=== PATIENT | male | born 1935 | race African-American/Black ===

== ENCOUNTER 2024-02-02 10:48 | Emergency (ER) | payer OTHER, MEDICARE, SELFPAY ==
--- NOTE | ~2024-02-02 | XR_ITS ---
EXAMINATION: XR chest 2V DATE: 02/02/2024 11:26 INDICATION: Weakness. Lethargy. TECHNIQUE: Frontal and lateral views of the chest were obtained. COMPARISON: None. FINDINGS: There is marked elevation of left hemidiaphragm. There is mild atelectasis at lung bases. N o pleural effusion or pneumothorax. The heart size is normal. Median sternotomy wires and mediastinal surgical clips are seen, likely from prior coronary artery bypass grafting. IMPRESSION: 1. Marked elevation of left hemidiaphragm. 2. Mild atelectasis at the lung bases. Reviewed, dictated and finalized at location E.
[2024-02-02 10:49] VITALS: BP 128/59; PULSE 89; RESP 16; TEMP 36.6; O2SAT 95
--- NOTE | 2024-02-02 11:03 | ECG_ITS ---
SEE SCANNED COPY FOR CONFIRMED REPORT MTDD
[2024-02-02 12:29] LABS: Basophils Percent Auto 0.7 % (0.2-1.2); Eosinophils Absolute Auto 0.1 K/mm3 (0-0.3); Eosinophils Percent Auto 1.8 % (0-4.4); Hematocrit 36.7 % (42.0-52.0); Immature Granulocyte Absolute 0.04 K/mm3 (0.00-0.031); Immature Granulocyte Percent A 0.7 % (0-0.5); Lymphocytes Percent Auto 8.2 % (18.3-44.2); Mean Corpuscular HGB Conc 35.4 g/dl (32-36); Mean Corpuscular Volume 79.1 fl (80-100); Mean Platelet Volume 9.9 fl (7.4-10.4); Monocytes Absolute Auto 0.8 K/mm3 (0.1-0.6); Monocytes Percent Auto 12.7 % (2.6-8.5); Neutrophils Absolute Auto 4.7 K/mm3 (1.3-6.7); Neutrophils Percent Auto 75.9 % (45.5-73.1); Platelet Count Result 235 k/mm3 (150-375); Red Blood Count 4.64 M/mm3 (4.6-6.20); Red Cell Distribution Width 18.2 % (11.5-14.5); White Blood Count 6.1 K/mm3 (4.5-10.0)
[2024-02-02 12:33] VITALS: BP 129/58; PULSE 96; RESP 19; O2SAT 97
[2024-02-02 12:46] LABS: Appearance Urine Cloudy (Clear); Bacteria Urine 4+ /hpf; Bilirubin Urine Negative (Negative); Blood Urine 3+ (Negative); Color Urine Yellow (Yellow); Glucose Urine UA Negative (Negative); Ketones Urine Negative (Negative); Leukocyte Esterase Ur 3+ LEU/UL (Negative); Nitrate Urine Negative (Negative); Non Pathogenic Casts 0-2; Protein Urine 2+ mg/dL (Negative); Specific Grav Ur 1.015 (1.001-1.035); Squamous Epithelial Cell Urine None Seen /hpf (Few); WBC Urine >100 /hpf (0-3); pH Urine 8.5 (5.0-9.0)
[2024-02-02 12:49] LABS: Alanine Aminotransferase 34 U/L (6-50); Albumin Level 3.6 g/dL (3.5-5.1); Alkaline Phosphatase 90 U/L (38-126); Anion Gap 4 mmol/L (4-12); Aspartate Amino Transferase 34 U/L (17-59); Bilirubin,Total 0.7 mg/dL (0.2-1.3); Blood Urea Nitrogen 40 mg/dL (9-20); Calcium 9.2 mg/dL (8.4-10.2); Carbon Dioxide 25 mmol/L (22-30); Chloride 110 mmol/L (98-107); Estimated CRCL calculation 29 ml/min; Estimated Glomerular Filt Rate > 60; Glucose 100 mg/dL (65-110); Potassium 4.3 mmol/L (3.4-5.0); Sodium 139 mmol/L (137-145)
--- NOTE | 2024-02-02 13:04 | ED.GENADULT ---
HPI - General Adult General Chief complaint: Weakness Stated complaint: lethargic Time Seen by Provider: 02/02/24 12:31 History of Present Illness HPI narrative: Patient is a 88-year-old male who presents to the emergency department afternoon from [facility] due to to generalized weakness. Patient was admitted at [facility] after he sustained a stroke. Patient is still able to move all 4 extremities, however, left-sided is weaker than the right. [facility] yesterday, however, today he was noted to be more sleepy and tired and was brought to our facility for further evaluation. Daughter is currently present at bedside and does admit that he does look a little bit more tired, however, he is at his baseline mentation pulido. Patient is currently denying any complaints other than feeling generally weak and tired. No additional symptoms or concerns at this time. Related Data Home Medications Medication Instructions Recorded Confirmed acetaminophen 650 mg rectal 650 mg RECTAL Q4H PRN Mild Pain 02/01/24 02/01/24 suppository (Scale Score 1-4) acetaminophen 650 mg rectal 650 mg RECTAL Q4H PRN Pain/Fever 02/01/24 02/01/24 suppository acidophilus 100 million 1 cap PO DAILY 02/01/24 02/01/24 cell-pectin, citrus 10 mg capsule aspirin 81 mg tablet,delayed 81 mg PO DAILY 02/01/24 02/01/24 release aspirin 81 mg tablet,delayed 81 mg PO DAILY 02/01/24 02/01/24 release atorvastatin 40 mg tablet 40 mg PO DAILY 02/01/24 02/01/24 atorvastatin 40 mg tablet (Lipitor) 40 mg PO DAILY 02/01/24 02/01/24 bisacodyl 10 mg rectal suppository 10 mg RECTAL DAILY PRN Constipation 02/01/24 02/01/24 bisacodyl 10 mg rectal suppository 10 mg RECTAL DAILY PRN Constipation 02/01/24 02/01/24 cholecalciferol (vitamin D3) 25 25 mcg PO DAILY 02/01/24 02/01/24 mcg (1,000 unit) tablet (Vitamin D3) cholecalciferol (vitamin D3) 25 25 mcg PO DAILY 02/01/24 02/01/24 mcg (1,000 unit) tablet (Vitamin D3) diclofenac sodium 1 % topical gel 2 g topical QID 02/01/24 02/01/24 diclofenac sodium 1 % topical gel 2 g topical QID arthritis 02/01/24 02/01/24 docusate sodium 100 mg capsule 100 mg PO BID 02/01/24 02/01/24 docusate sodium 100 mg capsule 100 mg PO DAILY 02/01/24 02/01/24 finasteride 5 mg tablet 5 mg PO DAILY 02/01/24 02/01/24 finasteride 5 mg tablet 5 mg PO DAILY 02/01/24 02/01/24 folic acid 400 mcg tablet 0.4 mg PO DAILY 02/01/24 02/01/24 folic acid 400 mcg tablet 0.4 mg PO DAILY 02/01/24 02/01/24 megestrol 400 mg/10 mL (40 mg/mL) 400 mg PO DAILY 02/01/24 02/01/24 oral suspension megestrol 400 mg/10 mL (40 mg/mL) 400 mg PO DAILY 02/01/24 02/01/24 oral suspension metoprolol succinate 25 mg 12.5 mg PO DAILY 02/01/24 02/01/24 tablet,extended release 24 hr metoprolol succinate 25 mg 12.5 mg PO DAILY 02/01/24 02/01/24 tablet,extended release 24 hr mupirocin 2 % topical ointment 1 applic topical TID 02/01/24 02/01/24 mupirocin 2 % topical ointment 1 applic topical TID 02/01/24 02/01/24 omeprazole 20 mg capsule,delayed 20 mg PO DAILY 02/01/24 02/01/24 release omeprazole 20 mg capsule,delayed 20 mg PO DAILY 02/01/24 02/01/24 release pemigatinib 13.5 mg tablet 13.5 mg PO DAILY 02/01/24 02/01/24 pemigatinib 13.5 mg tablet 13.5 mg PO DAILY 02/01/24 02/01/24 (Pemazyre) polyethylene glycol 3350 17 gram 17 g PO DAILY Constipation 02/01/24 02/01/24 oral powder packet polyethylene glycol 3350 17 gram 17 g PO DAILY 02/01/24 02/01/24 oral powder packet (Miralax) ticagrelor 90 mg tablet 90 mg PO Q12H 02/01/24 02/01/24 ticagrelor 90 mg tablet 90 mg PO Q12H 02/01/24 02/01/24 Allergies Allergy/AdvReac Type Severity Reaction Status Date / Time cetirizine [From [facility]] AdvReac Dizziness Verified 02/02/24 11:06 loratadine AdvReac Dizziness Verified 02/02/24 11:06 Review of Systems Review of Systems: All systems are reviewed and are negative unless stated otherwise in the HPI. [facility] Family
[2024-02-02 13:16] LABS: Add Urine Microscopic? YES
[2024-02-02] MEDS: SODIUM CHLORIDE 0.9% IV 1,000 ML 500 ML IV CONT (13:25)
[2024-02-02 13:30] LABS: Influenza A QL RT-PCR Negative (Negative); Influenza B QL RT-PCR Negative (Negative); RSV RNA, RT-PCR Negative (Negative); SARS-CoV-2 RNA PCR Negative (Negative)
[2024-02-02 13:33] VITALS: BP 110/65; PULSE 88; RESP 16; O2SAT 100
[2024-02-02 14:01] VITALS: BP 114/41; PULSE 85; RESP 20; O2SAT 100
[2024-02-02 15:00] VITALS: BP 120/65; PULSE 80; PULSE 85; RESP 14; RESP 16; O2SAT 97
[2024-02-02 15:01] VITALS: BP 137/89; PULSE 79; RESP 12; O2SAT 100
== END 2024-02-02 16:20 ==
PROVIDERS: Emergency Provider Emergency Medicine; PCP Hospitalist
DX: N39.0 Urinary tract infection, site not specified (principal); R53.1 Weakness; Z20.822 Contact with and (suspected) exposure to COVID-19; I69.354 Hemiplegia and hemiparesis following cerebral infarction affecting left non-dominant side; Z87.891 Personal history of nicotine dependence; Z79.82 Long term (current) use of aspirin; Z79.899 Other long term (current) drug therapy; I45.10 Unspecified right bundle-branch block
CPT/HCPCS: 36415; 71046; 80053; 81001; 85025; 87077; 87086; 87088; 87186; 87637; 93005; 96361; 96365; 99284; J0696; J7030

== ENCOUNTER 2024-03-08 17:46 | Inpatient (IN) | payer MEDICARE, OTHER, SELFPAY ==
[2024-03-08] VITALS (18 sets, daily range): BP systolic 96–140; BP diastolic 42–103; PULSE 106–123; RESP 14–38; TEMP 36.4; O2SAT 92–100
--- NOTE | ~2024-03-08 | XR_ITS ---
Portable chest x-ray Comparison: 02/02/2024 Clinical History: Hypoxia Findings: There is elevation of left hemidiaphragm. Probable minimal right pleural effusion and righ t basilar atelectasis. Cardiomediastinal silhouette is stable. Bones and soft tissues are unremarkab le. Impression: Minimal right pleural effusion and/or right basilar atelectasis. Elevated left hemidiaphragm. Reviewed, dictated and finalized at location . Impression: Minimal right pleural effusion and/or right basilar atelectasis. Elevated left hemidiaphragm.
--- NOTE | ~2024-03-08 | CT_ITS ---
EXAMINATION: CT soft tissue neck chest wo DATE: 03/08/2024 21:13 INDICATION: foreign body sensation, sore throat TECHNIQUE: Computed tomography (CT) of the chest was performed with 100 mL Omnipaque-350 intravenous contrast. Automated exposure control and iterative reconstruction technique were employed. The dose-l ength product was 514.13 mGy-cm. COMPARISON: None. FINDINGS: SOFT TISSUE NECK: The thyroid gland is unremarkable. The submandibular and parotid glands are symmetric. There is n o cervical lymphadenopathy. There are no masses identified. The superior mediastinum is unremarka ble. Aerated secretions in the valleculae and subglottic airway. The airway is otherwise unremarkab le. Parapharyngeal and pre-glottic fat planes are preserved. The orbits are unremarkable. Mastoi d air cells are well aerated. There is cervical spondylosis with multilevel central canal or neural foraminal narrowing. CHEST: Motion artifact in the upper abdomen. Thoracic aorta: No significant dilation or calcification. Heavy atherosclerotic calcification. Lung parenchyma and airways: Left hemidiaphragm elevation. 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 Calcified right lower lobe granuloma. Lungs and airways are otherwise clear. Thoracic inlet, axillae and chest wall: No thyroid or soft tissue mass. Changes of prior CABG. No axi llary lymphadenopathy. Mediastinum: No mass or lymphadenopathy. Heart and pericardium: Normal heart size. No pericardial effusion. Coronary artery calcifications: Heavy. Pleura: No effusion or mass. Upper abdomen: No significant finding. Thoracic bones: No acute osseous finding in the chest. IMPRESSION: Aerated secretions in the valleculae and supraglottic airway. No radiopaque foreign body detected in the airways. If symptoms persist consider referral for endoscopy and/or swallowing study with esophag ogram. No acute thoracic process detected. Reviewed, dictated and finalized at location K. IMPRESSION: Aerated secretions in the valleculae and supraglottic airway. No radiopaque for eign body detected in the airways. If symptoms persist consider referral for en doscopy and/or swallowing study with esophagogram. No acute thoracic process detected.
--- NOTE | 2024-03-08 19:08 | ED_ITS ---
HPI - General Adult General Chief complaint: Unspecified Stated complaint: difficulty swallowing Time Seen by Provider: 03/08/24 18:53 History of Present Illness HPI narrative: Patient is an 89-year-old male with history of terminal liver cancer, currently seeking hospice care, recent CVA here with difficulty swallowing and decreased p.o. intake x1 day. Daughter at bedside helps with history. She states that 5 days ago he had dental walled performed at the [facility] for new dentures. The following day he started complaining of an itchy throat. Symptoms have progressed since then and today He was complaining of a foreign body sensation and pain with swallowing. Daughter notes that he has been able to tolerate his secretions but he did attempt to have both a yogurt and insure today and she did note that he seemed to cough some of this up. He has had next to no p.o. intake throughout the day today due to this pain and difficulty with swallowing. They are well connected with multiple programs including occupational therapy, physical therapy, speech therapy. He was evaluated by speech therapy last week however he did not have any difficulty with swallowing during their visit and they have plans to follow up with him again after his dentures arrive in a couple of weeks. Daughter at bedside denies any difficulty with swallowing after his recent CVA. No fever or chills. Patient currently complaining of a sore throat and dry mouth. Related Data Home Medications Medication Instructions Recorded Confirmed acidophilus 100 million 1 cap PO DAILY 02/01/24 03/09/24 cell-pectin, citrus 10 mg capsule aspirin 81 mg tablet,delayed 81 mg PO DAILY 02/01/24 03/09/24 release atorvastatin 40 mg tablet (Lipitor) 40 mg PO DAILY 02/01/24 03/09/24 bisacodyl 10 mg rectal suppository 10 mg RECTAL DAILY PRN Constipation 02/01/24 03/09/24 cholecalciferol (vitamin D3) 25 25 mcg PO DAILY 02/01/24 03/09/24 mcg (1,000 unit) tablet (Vitamin D3) diclofenac sodium 1 % topical gel 2 g topical QID 02/01/24 03/09/24 docusate sodium 100 mg capsule 100 mg PO BID 02/01/24 03/09/24 finasteride 5 mg tablet 5 mg PO DAILY 02/01/24 03/09/24 folic acid 400 mcg tablet 0.4 mg PO DAILY 02/01/24 03/09/24 megestrol 400 mg/10 mL (40 mg/mL) 400 mg PO DAILY 02/01/24 03/09/24 oral suspension metoprolol succinate 25 mg 12.5 mg PO DAILY 02/01/24 03/09/24 tablet,extended release 24 hr omeprazole 20 mg capsule,delayed 20 mg PO DAILY 02/01/24 03/09/24 release polyethylene glycol 3350 17 gram 17 g PO DAILY 02/01/24 03/09/24 oral powder packet (Miralax) ticagrelor 90 mg tablet 90 mg PO Q12H 02/01/24 03/09/24 Allergies Allergy/AdvReac Type Severity Reaction Status Date / Time cetirizine [From [facility]] AdvReac Dizziness Verified 02/02/24 11:06 loratadine AdvReac Dizziness Verified 02/02/24 11:06 Review of Systems Review of Systems: All systems reviewed & are unremarkable except as noted in HPI and below PMFSH Family History Family History Sibling Diabetes mellitus Prostate carcinoma Daughter Cancer Social History Social History Smoking packs per day: 1 Smoking cigarettes per day: 20.0 Years smoked: 4 Smoking pack-years: 4.00 Smoking status: Former smoker Tobacco type: cigarettes Second hand tobacco smoke exposure: Yes Alcohol intake: never Substance use: never Substance use type: does not use Do You Feel Safe in your Home?: Yes Lack of Transportation: No Lack of Food: Never True Current Housing: I Have Housing Concerned About Future Housing: No Difficulty Paying Gas/Electric Bills: No Difficulty Paying for Meds: No Currently Unemployed: No Education: Don't Know Difficulty w/ Childcare or Family Care: No Spiritual care concerns: Yes ([place]) Exam Narrative: GENERAL: Cachectic HEAD: Normocephalic, atraumatic. EYES: PERRLA and EOMI. ENT: Nares clear. Mucous membranes extremely dry. he does have some dried blood in his oropharynx and what appears to be a scab in the left nares NECK: Supple. CHEST: Clear to auscultation. No respiratory distress. HEART: Tachycardic. Normal peripheral pulses. ABDOMEN: Soft, nontender, nondistended. EXTREMITIES: Normal range of motion. No edema. SKIN: Warm, dry, no rash. NEURO: No focal deficits. Alert and oriented x3. Course Course Emergency Course: Chart review performed. Patient here with sore throat and difficulty swallowing and taking medications this morning. Triage vitals show tachycardia, afebrile, normal O2 saturation. Last visit in our system was for an acute RMCA ischemic stroke about a month ago, discharged a couple of weeks ago. Patient seen evaluated, cachectic appearing, does have terminal liver cancer and family recently with true any care and note that their goals of care moving forward are to be focused on comfort. He has had a progressive worsening sore throat since mid last week and today is having difficulty with any p.o. intake. Mucous membranes extremely dry on exam. He does appear to have a resolved epistaxis on the left side, no active bleeding appreciated, daughter at bedside notes that this is a recurrent issue due to nose picking. Suspect patient likely has a component of dehydration, will do COVID, influenza, RSV swab as well as a strep swab. IV fluids ordered. Patient and daughter agreeable to workup and plan. Multiple attempts for patient to try and swallow both water and GI cocktail, he has difficulty initiating any swallowing. Will to CT soft tissue neck as well as chest to evaluate for possible abnormality. Anticipate he will require admission for swallow study and possible endoscopy. Lab work reviewed. CBC shows some hemoconcentration, TREV present as well as mild hyperkalemia. COVID, influenza, RSV, strep swabs negative. CT shows aerated secretions in the valleculae and supraglottic airway, no radiopaque foreign body detected in the airways. She patient continues to be unable to swallow here in the department. Will admit for swallow study and possible endoscopy if needed. Lengthy discussion regarding goals of care with patient and daughter at bedside. Patient states that he would like to be full code despite likely poor outcome and discussions with hospice outpatient. Spoke with hospitalist, Dr. Oneil who accepts patient for admission. Vital Signs Vital signs: Vital Signs Temperature 97.5 F L 03/08/24 18:03 Pulse Rate 110 H 03/08/24 18:03 Respiratory Rate 18 03/08/24 18:03 Blood Pressure 127/44 L 03/08/24 18:03 Pulse Oximetry 100 03/08/24 18:03 Oxygen Delivery Room Air 03/08/24 18:03 Temperature 97.0 F L 03/09/24 03:06 Pulse Rate 112 H 03/09/24 03:06 Respiratory Rate 22 H 03/09/24 02:59 Blood Pressure 123/92 H 03/09/24 03:06 Pulse Oximetry 100 03/09/24 03:06 Oxygen Delivery Nasal Cannula 03/09/24 02:34 Oxygen Flow Rate 2 03/09/24 02:34 Medical Decision Making Vital Signs Vital Signs: Vital Signs Temperature 97.5 F L 03/08/24 18:03 Pulse Rate 110 H 03/08/24 18:03 Respiratory Rate 18 03/08/24 18:03 Blood Pressure 127/44 L 03/08/24 18:03 Pulse Oximetry [facility] 03/08/24 18:03 Oxygen Delivery Room Air 03/08/24 18:03 Temperature 97.0 F L 03/09/24 03:06 Pulse Rate 112 H 03/09/24 03:06 Respiratory Rate 22 H 03/09/24 02:59 Blood Pressure 123/92 H 03/09/24 03:06 Pulse Oximetry [facility] 03/09/24 03:06 Oxygen Delivery Nasal Cannula 03/09/24 02:34 Oxygen Flow Rate 2 03/09/24 02:34 Lab Data 03/08/24 19:32 03/08/24 23:23 Labs: Lab Results 03/08/24 03/08/24 03/08/24 Range/Units 19:32 21:17 23:23 WBC 8.1 (4.5-10.0) K/mm3 RBC 4.55 L (4.6-6.20) M/mm3 Hgb 13.2 L (14.0-18.0) g/dL Hct 37.8 L (42.0-52.0) % MCV 83.1 (80-100) fl MCH 29.0 (26-34) pg MCHC 34.9 (32-36) g/dl RDW 16.6 H (11.5-14.5) % Plt Count 197 (150-375) k/mm3 MPV 10.1 (7.4-10.4) fl Immature Gran % (Auto) 0.2 (0-0.5) % Neut % (Auto) 87.4 H (45.5-73.1) % Lymph % (Auto) 3.9 L (18.3-44.2) % Granite % (Auto) 7.0 (2.6-8.5) % Eos % (Auto) 1.0 (0-4.4) % Baso % (Auto) 0.5 (0.2-1.2) % Lymph # (Auto) 0.31 L (0.9-3.2) K/mm3 Granite # (Auto) 0.6 (0.1-0.6) K/mm3 Eos # (Auto) 0.1 (0-0.3) K/mm3 Baso # (Auto) 0.0 (0.0-0.1) K/mm3 Abs Immat Gran (auto) 0.02 (0.00-0.031) K/mm3 Absolute Neuts (auto) 7.0 H (1.3-6.7) K/mm3 Absolute Nucleated RBC 0.000 (0.0-0.012) K/mm3 Nucleated RBC % 0.0 (0.0-0.2) % Sodium 145 144 (137-145) mmol/L Potassium 5.3 H 5.1 H (3.4-5.0) mmol/L Chloride 112 H 113 H (98-107) mmol/L Carbon Dioxide 21 L 23 (22-30) mmol/L Anion Gap 12 8 (4-12) mmol/L BUN 41 H 38 H (9-20) mg/dL Creatinine 1.90 H 1.70 H (0.7-1.3) mg/dL Estim Creat Clear Calc 20 22 ml/min Estimated GFR 41 L 46 L (59 - ) Glucose 122 H 104 (65-110) mg/dL Calcium 9.9 9.3 (8.4-10.2) mg/dL Magnesium 2.1 (1.6-2.3) mg/dL Total Bilirubin 1.3 (0.2-1.3) mg/dL AST 32 (17-59) U/L ALT 27 (6-50) U/L Alkaline Phosphatase 118 (38-126) U/L C-Reactive Protein 3.5 H (<1.0) mg/dL Total Protein 8.0 (6.3-8.2) g/dL Albumin 4.4 (3.5-5.1) g/dL Urine Color Yellow (Yellow) Urine Appearance Clear (Clear) Urine pH 5.5 (5.0-9.0) Ur Specific [place] 1.022 (1.001-1.035) Urine Protein Trace (Negative) mg/dL Urine Glucose (UA) Negative (Negative) mg/dL Urine Ketones Trace H (Negative) mg/dL Ur Blood (Man) Negative (Negative) Urine Nitrate Negative (Negative) Urine Bilirubin Negative (Negative) Urine Urobilinogen 0.2 (<2.0) mg/dL Add Ur Microanalysis Reviewed Leukocyte Esterase Rfl Negative (Negative) INDIGO/UL Urine RBC 3-5 H (0-2) /hpf Urine WBC 0-5 (0-3) /hpf Ur Squamous Epith Cells None seen (Few) /hpf Urine Bacteria None seen /hpf Urine Casts 3-5 Influenza A (RT-PCR) Negative (Negative) Influenza B (RT-PCR) Negative (Negative) RSV (RT-PCR) Negative (Negative) SARS-CoV-2 RNA (RT-PCR) Negative (Negative) Group A Strep (PCR) Not detected (Negative) Discharge Plan Discharge Clinical Impression: Dysphagia, TREV (acute kidney injury) Patient Disposition: Still a Patient Condition: Stable
[2024-03-08 19:40] LABS: Basophils Percent Auto 0.5 % (0.2-1.2); Eosinophils Absolute Auto 0.1 K/mm3 (0-0.3); Hematocrit 37.8 % (42.0-52.0); Hemoglobin 13.2 g/dL (14.0-18.0); Immature Granulocyte Absolute 0.02 K/mm3 (0.00-0.031); Immature Granulocyte Percent A 0.2 % (0-0.5); Lymphocytes Absolute Auto 0.31 K/mm3 (0.9-3.2); Lymphocytes Percent Auto 3.9 % (18.3-44.2); Mean Corpuscular HGB Conc 34.9 g/dl (32-36); Mean Corpuscular Volume 83.1 fl (80-100); Mean Platelet Volume 10.1 fl (7.4-10.4); Monocytes Absolute Auto 0.6 K/mm3 (0.1-0.6); Neutrophils Percent Auto 87.4 % (45.5-73.1); Platelet Count Result 197 k/mm3 (150-375); Red Blood Count 4.55 M/mm3 (4.6-6.20); Red Cell Distribution Width 16.6 % (11.5-14.5); White Blood Count 8.1 K/mm3 (4.5-10.0)
[2024-03-08] MEDS: LACTATED RINGERS 1,000 ML 999 ML IV CONT ×2 (19:42→23:14)
[2024-03-08] MEDS: ONDANSETRON INJ 4 MG/2 ML VIAL IV PUSH (19:43)
[2024-03-08] MEDS: BELLADONNA ALK/PHENOB ELIX 10 ML, MAG HYDROX/ALUMINUM HYD/SIMETH 30 ML, LIDOCAINE HCL 2... PO (19:43)
[2024-03-08] MEDS: MORPHINE SULFATE (*CRX) 4 MG/ML INJ 2 MG IV PUSH (19:47)
[2024-03-08 19:53] LABS: Alanine Aminotransferase 27 U/L (6-50); Albumin Level 4.4 g/dL (3.5-5.1); Alkaline Phosphatase 118 U/L (38-126); Anion Gap 12 mmol/L (4-12); Aspartate Amino Transferase 32 U/L (17-59); Bilirubin,Total 1.3 mg/dL (0.2-1.3); Blood Urea Nitrogen 41 mg/dL (9-20); CRP 3.5 mg/dL (<1.0); Calcium 9.9 mg/dL (8.4-10.2); Carbon Dioxide 21 mmol/L (22-30); Chloride 112 mmol/L (98-107); Estimated CRCL calculation 20 ml/min; Estimated Glomerular Filt Rate 41; Glucose 122 mg/dL (65-110); Magnesium 2.1 mg/dL (1.6-2.3); Potassium 5.3 mmol/L (3.4-5.0); Sodium 145 mmol/L (137-145)
[2024-03-08 20:15] LABS: Strep Group A RT-PCR NOT DETECTED (Negative)
[2024-03-08 20:26] LABS: Influenza A QL RT-PCR Negative (Negative); Influenza B QL RT-PCR Negative (Negative); RSV RNA, RT-PCR Negative (Negative); SARS-CoV-2 RNA PCR Negative (Negative)
--- NOTE | 2024-03-08 20:58 | PC.NURSE ---
attempted to give patient GI cocktail drink to help with throat and abd pain. patient was unable to close lips around straw due to lack of secretions. moistened mouth with 3 separate mouth swabs and patient was barely participating in moistening mouth due to weakness. provider requests to continue attempt giving PO medication drink. family requests to put a little amount of liquid medication in patients mouth for them, however after trying this with 2ml the patient would not swallow the medication. did not try anymore attempts after this because patient was not visibly swallowing secretions, medication, or water from mouth swabs. provider notified and okayed this.
[2024-03-08 21:38] LABS: Appearance Urine Clear (Clear); Bacteria Urine None Seen /hpf; Bilirubin Urine Negative (Negative); Blood Urine Negative (Negative); Color Urine Yellow (Yellow); Glucose Urine UA Negative (Negative); Ketones Urine Trace mg/dL (Negative); Leukocyte Esterase Ur Negative LEU/UL (Negative); Need Manual Microscopic Reviewed; Nitrate Urine Negative (Negative); Protein Urine Trace mg/dL (Negative); Specific Grav Ur 1.022 (1.001-1.035); Squamous Epithelial Cell Urine None Seen /hpf (Few); Urobilinogen Urine 0.2 mg/dL (<2.0); WBC Urine 0-5 /hpf (0-3); pH Urine 5.5 (5.0-9.0)
[2024-03-08 21:44] LABS: Add Urine Microscopic? YES
--- NOTE | 2024-03-08 23:22 | PC.NURSE ---
care and report given to IFEANYI Mcguire. all questions answered.
[2024-03-08 23:41] LABS: Anion Gap 8 mmol/L (4-12); Blood Urea Nitrogen 38 mg/dL (9-20); Calcium 9.3 mg/dL (8.4-10.2); Carbon Dioxide 23 mmol/L (22-30); Chloride 113 mmol/L (98-107); Estimated CRCL calculation 22 ml/min; Estimated Glomerular Filt Rate 46; Glucose 104 mg/dL (65-110); Potassium 5.1 mmol/L (3.4-5.0); Sodium 144 mmol/L (137-145)
[2024-03-09] VITALS (10 sets, daily range): BP systolic 121–137; BP diastolic 42–92; PULSE 63–112; RESP 14–22; TEMP 35.8–37.3; O2SAT 90–100; BMI 18.1
--- NOTE | 2024-03-09 02:42 | PC.NURSE ---
Pt's daughter, and POA, and granddaughter provided information regarding pt's admission. Pt was unable or unwilling to respond to any questions including orientation questions. I attempted to clarify pt's code status and alleged desire for hospice/comfort care (based on ER physician report). The daughter/POA adamantly stated repeatedly that they do NOT want hospice/comfort care. They want full code, all treatments, therapies, meds, etc. She informed me that pt's oncologist at the [facility] recommended that pt should be hospice as he is terminal, end stage, and in order to be made comfortable will need hospice services. The daughter/POA again affirmed that they do not want hospice.
--- NOTE | 2024-03-09 04:44 | ED.GENADULT ---
HPI - General Adult General Chief complaint: Unspecified Stated complaint: difficulty swallowing Time Seen by Provider: 03/08/24 18:53 Related Data Home Medications Medication Instructions Recorded Confirmed acidophilus 100 million 1 cap PO DAILY 02/01/24 03/09/24 cell-pectin, citrus 10 mg capsule aspirin 81 mg tablet,delayed 81 mg PO DAILY 02/01/24 03/09/24 release atorvastatin 40 mg tablet (Lipitor) 40 mg PO DAILY 02/01/24 03/09/24 bisacodyl 10 mg rectal suppository 10 mg RECTAL DAILY PRN Constipation 02/01/24 03/09/24 cholecalciferol (vitamin D3) 25 25 mcg PO DAILY 02/01/24 03/09/24 mcg (1,000 unit) tablet (Vitamin D3) diclofenac sodium 1 % topical gel 2 g topical QID 02/01/24 03/09/24 docusate sodium 100 mg capsule 100 mg PO BID 02/01/24 03/09/24 finasteride 5 mg tablet 5 mg PO DAILY 02/01/24 03/09/24 folic acid 400 mcg tablet 0.4 mg PO DAILY 02/01/24 03/09/24 megestrol 400 mg/10 mL (40 mg/mL) 400 mg PO DAILY 02/01/24 03/09/24 oral suspension metoprolol succinate 25 mg 12.5 mg PO DAILY 02/01/24 03/09/24 tablet,extended release 24 hr omeprazole 20 mg capsule,delayed 20 mg PO DAILY 02/01/24 03/09/24 release polyethylene glycol 3350 17 gram 17 g PO DAILY 02/01/24 03/09/24 oral powder packet (Miralax) ticagrelor 90 mg tablet 90 mg PO Q12H 02/01/24 03/09/24 Allergies Allergy/AdvReac Type Severity Reaction Status Date / Time cetirizine [From [facility]] AdvReac Dizziness Verified 02/02/24 11:06 loratadine AdvReac Dizziness Verified 02/02/24 11:06 [facility] Family History Family History Sibling Diabetes mellitus Prostate carcinoma Daughter Cancer Social History Social History Smoking packs per day: 1 Smoking cigarettes per day: 20.0 Years smoked: 4 Smoking pack-years: 4.00 Smoking status: Former smoker Tobacco type: cigarettes Second hand tobacco smoke exposure: Yes Alcohol intake: never Substance use: never Substance use type: does not use Do You Feel Safe in your Home?: Yes Lack of Transportation: No Lack of Food: Never True Current Housing: I Have Housing Concerned About Future Housing: No Difficulty Paying Gas/Electric Bills: No Difficulty Paying for Meds: No Currently Unemployed: No Education: Don't Know Difficulty w/ Childcare or Family Care: No Spiritual care concerns: Yes (Congregational) Course Vital Signs Vital signs: Vital Signs Temperature 97.5 F L 03/08/24 18:03 Pulse Rate 110 H 03/08/24 18:03 Respiratory Rate 18 03/08/24 18:03 Blood Pressure 127/44 L 03/08/24 18:03 Pulse Oximetry 100 03/08/24 18:03 Oxygen Delivery Room Air 03/08/24 18:03 Temperature 97.0 F L 03/09/24 03:06 Pulse Rate 112 H 03/09/24 03:06 Respiratory Rate 22 H 03/09/24 02:59 Blood Pressure 123/92 H 03/09/24 03:06 Pulse Oximetry 100 03/09/24 03:06 Oxygen Delivery Nasal Cannula 03/09/24 02:34 Oxygen Flow Rate 2 03/09/24 02:34 Medical Decision Making Vital Signs Vital Signs: Vital Signs Temperature 97.5 F L 03/08/24 18:03 Pulse Rate 110 H 03/08/24 18:03 Respiratory Rate 18 03/08/24 18:03 Blood Pressure 127/44 L 03/08/24 18:03 Pulse Oximetry 100 03/08/24 18:03 Oxygen Delivery Room Air 03/08/24 18:03 Temperature 97.0 F L 03/09/24 03:06 Pulse Rate 112 H 03/09/24 03:06 Respiratory Rate 22 H 03/09/24 02:59 Blood Pressure 123/92 H 03/09/24 03:06 Pulse Oximetry 100 03/09/24 03:06 Oxygen Delivery Nasal Cannula 03/09/24 02:34 Oxygen Flow Rate 2 03/09/24 02:34 Lab Data 03/08/24 19:32 03/08/24 23:23 Labs: Lab Results 03/08/24 03/08/24 03/08/24 Range/Units 19:32 21:17 23:23 WBC 8.1 (4.5-10.0) K/mm3 RBC 4.55 L (4.6-6.20) M/mm3 Hgb 13.2 L (14.0-18.0) g/dL Hct 37.8 L (42.0-52.0) % MCV 83.1 (80-100) fl MCH 29.0 (26-34) pg MCHC 34.9 (32-36) g/dl RDW 16.6 H (11.5-14.5) % Plt Count 197 (150-375) k/mm3 MPV 10.1 (7.4-10.4) fl Immature Gran % (Auto) 0.2 (0-0.5) % Neut % (Auto) 87.4 H (45.5-73.1) % Lymph % (Auto) 3.9 L (18.3-44.2) % [place] % (Auto) 7.0 (2.6-8.5) % Eos % (Auto) 1.0 (0-4.4) % Baso % (Auto) 0.5 (0.2-1.2) % Lymph # (Auto) 0.31 L (0.9-3.2) K/mm3 [place] # (Auto) 0.6 (0.1-0.6) K/mm3 Eos # (Auto) 0.1 (0-0.3) K/mm3 Baso # (Auto) 0.0 (0.0-0.1) K/mm3 Abs Immat Gran (auto) 0.02 (0.00-0.031) K/mm3 Absolute Neuts (auto) 7.0 H (1.3-6.7) K/mm3 Absolute Nucleated RBC 0.000 (0.0-0.012) K/mm3 Nucleated RBC % 0.0 (0.0-0.2) % Sodium 145 144 (137-145) mmol/L Potassium 5.3 H 5.1 H (3.4-5.0) mmol/L Chloride 112 H 113 H (98-107) mmol/L Carbon Dioxide 21 L 23 (22-30) mmol/L Anion Gap 12 8 (4-12) mmol/L BUN 41 H 38 H (9-20) mg/dL Creatinine 1.90 H 1.70 H (0.7-1.3) mg/dL Estim Creat Clear Calc 20 22 ml/min Estimated GFR 41 L 46 L (59 - ) Glucose 122 H 104 (65-110) mg/dL Calcium 9.9 9.3 (8.4-10.2) mg/dL Magnesium 2.1 (1.6-2.3) mg/dL Total Bilirubin 1.3 (0.2-1.3) mg/dL AST 32 (17-59) U/L ALT 27 (6-50) U/L Alkaline Phosphatase 118 (38-126) U/L C-Reactive Protein 3.5 H (<1.0) mg/dL Total Protein 8.0 (6.3-8.2) g/dL Albumin 4.4 (3.5-5.1) g/dL Urine Color Yellow (Yellow) Urine Appearance Clear (Clear) Urine pH 5.5 (5.0-9.0) Ur Specific [place] 1.022 (1.001-1.035) Urine Protein Trace (Negative) mg/dL Urine Glucose (UA) Negative (Negative) mg/dL Urine Ketones Trace H (Negative) mg/dL Ur Blood (Man) Negative (Negative) Urine Nitrate Negative (Negative) Urine Bilirubin Negative (Negative) Urine Urobilinogen 0.2 (<2.0) mg/dL Add Ur Microanalysis Reviewed Leukocyte Esterase Rfl Negative (Negative) INDIGO/UL Urine RBC 3-5 H (0-2) /hpf Urine WBC 0-5 (0-3) /hpf Ur Squamous Epith Cells None seen (Few) /hpf Urine Bacteria None seen /hpf Urine Casts 3-5 Influenza A (RT-PCR) Negative (Negative) Influenza B (RT-PCR) Negative (Negative) RSV (RT-PCR) Negative (Negative) SARS-CoV-2 RNA (RT-PCR) Negative (Negative) Group A Strep (PCR) Not detected (Negative) Discharge Plan Discharge Clinical Impression: TREV (acute kidney injury) Dysphagia Qualifiers: Dysphagia type: unspecified Qualified Code(s): R13.10 - Dysphagia, unspecified Patient Disposition: Still a Patient Condition: Stable
[2024-03-09] MEDS: HEPARIN SODIUM 5,000 UNITS/ML VIAL 5000 UNITS SUB-Q ×3 (05:10→21:06)
[2024-03-09] MEDS: DEXTROSE 5%/0.9% SOD CHL 1,000 ML 100 ML IV CONT ×2 (05:14→16:04)
[2024-03-09] MEDS: AMPICILLIN SULB 3 GM/NS 100 ML 3 GM/100 ML VIAL IVPB ×2 (05:17→16:12)
--- NOTE | 2024-03-09 05:35 | P.HP_ITS ---
H&P: HPI History of Present Illness Date/Time: 03/09/24 05:35 Chief Complaint: difficulty swallowing Narrative: a pleasant 89-year-old male who unfortunately has history of terminal liver cancer, CAD status post CABG, BPH, GERD, hyperlipidemia, hypertension, recent CVA with left-sided weakness. recently discharged from [facility] on 02/18/2024. He has had difficulty swallowing and decreased p.o. intake for 1 day. Patient is a poor historian in daughter helps to provide history. Approximately 5 days prior to admission he complained of itchy throat. noted he cannot tolerate his secretions either. initial evaluation demonstrates 88% on room air and 92% on 1 L. a neck/chest CT demonstrates aerated secretions in the vallecula and supraglottic airway with no radiopaque foreign body. Review of Systems Review of Systems: All systems reviewed & are unremarkable except as noted in HPI and below ( Subjective) [facility] Family History Family History Sibling Diabetes mellitus Prostate carcinoma Daughter Cancer Social History Social History Smoking packs per day: 1 Smoking cigarettes per day: 20.0 Years smoked: 4 Smoking pack-years: 4.00 Smoking status: Former smoker Tobacco type: cigarettes Second hand tobacco smoke exposure: Yes Alcohol intake: never Substance use: never Substance use type: does not use Do You Feel Safe in your Home?: Yes Lack of Transportation: No Lack of Food: Never True Current Housing: I Have Housing Concerned About Future Housing: No Difficulty Paying Gas/Electric Bills: No Difficulty Paying for Meds: No Currently Unemployed: No Education: Don't Know Difficulty w/ Childcare or Family Care: No Spiritual care concerns: Yes (Spiritism) Meds Home Medications and Allergies Home Medications Medication Instructions Recorded Confirmed Type acidophilus 100 million 1 cap PO DAILY 02/01/24 03/09/24 History cell-pectin, citrus 10 mg capsule aspirin 81 mg tablet,delayed 81 mg PO DAILY 02/01/24 03/09/24 History release atorvastatin 40 mg tablet (Lipitor) 40 mg PO DAILY 02/01/24 03/09/24 History bisacodyl 10 mg rectal suppository 10 mg RECTAL DAILY PRN Constipation 02/01/24 03/09/24 History cholecalciferol (vitamin D3) 25 25 mcg PO DAILY 02/01/24 03/09/24 History mcg (1,000 unit) tablet (Vitamin D3) diclofenac sodium 1 % topical gel 2 g topical QID 02/01/24 03/09/24 History docusate sodium 100 mg capsule 100 mg PO BID 02/01/24 03/09/24 History finasteride 5 mg tablet 5 mg PO DAILY 02/01/24 03/09/24 History folic acid 400 mcg tablet 0.4 mg PO DAILY 02/01/24 03/09/24 History megestrol 400 mg/10 mL (40 mg/mL) 400 mg PO DAILY 02/01/24 03/09/24 History oral suspension metoprolol succinate 25 mg 12.5 mg PO DAILY 02/01/24 03/09/24 History tablet,extended release 24 hr omeprazole 20 mg capsule,delayed 20 mg PO DAILY 02/01/24 03/09/24 History release polyethylene glycol 3350 17 gram 17 g PO DAILY 02/01/24 03/09/24 History oral powder packet (Miralax) ticagrelor 90 mg tablet 90 mg PO Q12H 02/01/24 03/09/24 History acetaminophen 325 mg tablet 650 mg PO Q6H PRN Mild Pain (1-3) 02/18/24 03/09/24 Rx Or Fever #30 tabs hydroxyzine HCl 25 mg tablet 25 mg PO BID PRN Anxiety #30 tabs 02/18/24 03/09/24 Rx Allergies Allergy/AdvReac Type Severity Reaction Status Date / Time cetirizine [From [facility]] AdvReac Dizziness Verified 02/02/24 11:06 loratadine AdvReac Dizziness Verified 02/02/24 11:06 Vital Signs Vital Signs - 24 hr 03/08/24 18:03 03/08/24 19:00 03/08/24 19:04 Temperature 97.5 F L Pulse Rate 110 H 111 H Respiratory Rate 18 18 21 H Blood Pressure 127/44 L 135/70 Pulse Oximetry 100 Oxygen Delivery Room Air Oxygen Flow Rate 03/08/24 19:22 03/08/24 19:42 03/08/24 19:58 Temperature Pulse Rate 111 H 110 H Respiratory Rate 23 H 22 H Blood Pressure 127/63 132/44 L Pulse Oximetry 100 96 94 Oxygen Delivery Nasal Cannula Oxygen Flow Rate 1 03/08/24 20:01 03/08/24 20:21 03/08/24 20:42 Temperature Pulse Rate 106 H 106 H 123 H Respiratory Rate 25 H 21 H 38 H Blood Pressure 116/63 134/103 H 124/69 Pulse Oximetry 92 98 95 Oxygen Delivery Oxygen Flow Rate 03/08/24 21:05 03/08/24 21:22 03/08/24 21:48 Temperature Pulse Rate 114 H 114 H 111 H Respiratory Rate 22 H 28 H 20 Blood Pressure 140/52 L 126/62 Pulse Oximetry 99 96 99 Oxygen Delivery Oxygen Flow Rate 03/08/24 21:52 03/08/24 21:56 03/08/24 22:01 Temperature Pulse Rate 116 H 115 H 117 H Respiratory Rate 28 H 20 19 Blood Pressure 99/58 L 96/75 L 115/42 L Pulse Oximetry 99 97 Oxygen Delivery Oxygen Flow Rate 03/08/24 22:21 03/08/24 22:41 03/08/24 23:01 Temperature Pulse Rate 110 H 111 H 114 H Respiratory Rate 17 14 19 Blood Pressure 114/45 L 116/50 L 135/45 L Pulse Oximetry 100 98 98 Oxygen Delivery Oxygen Flow Rate 03/09/24 01:30 03/09/24 02:34 03/09/24 02:59 Temperature 97.0 F L Pulse Rate 111 H 112 H Respiratory Rate 22 H 22 H Blood Pressure 121/67 123/92 H Pulse Oximetry 97 90 100 Oxygen Delivery Nasal Cannula Oxygen Flow Rate 2 03/09/24 03:06 Temperature 97.0 F L Pulse Rate 112 H Respiratory Rate Blood Pressure 123/92 H Pulse Oximetry 100 Oxygen Delivery Oxygen Flow Rate Exam Const: General: comfortable and no acute distress Other: A&O x2. Cachectic weak and unable/ unwilling to participate with motor exam HENMT: Other: extremely dry mucous membranes with copious and thick yellow mucus secretion in the oropharynx. Eyes: Pupils: Equal, round and reactive pupils present Neck: Neck: supple Resp: Effort & Inspection: normal respiratory effort Other: junky upper airway sounds Cardio: Rate: regular rate Rhythm: regular rhythm GI: GI Palp: Yes Soft to palpation and No Tenderness to palpation present (GI) Extrem: General: no edema H&P: Results Labs Labs: Short CBC 03/08/24 Range/Units 19:32 WBC 8.1 (4.5-10.0) K/mm3 Hgb 13.2 L (14.0-18.0) g/dL Hct 37.8 L (42.0-52.0) % Plt Count 197 (150-375) k/mm3 BMP 03/08/24 03/08/24 19:32 23:23 Sodium 145 144 Potassium 5.3 H 5.1 H Chloride 112 H 113 H Carbon Dioxide 21 L 23 BUN 41 H 38 H Creatinine 1.90 H 1.70 H Glucose 122 H 104 Calcium 9.9 9.3 Liver Function 03/08/24 Range/Units 19:32 Total Bilirubin 1.3 (0.2-1.3) mg/dL AST 32 (17-59) U/L ALT 27 (6-50) U/L Alkaline Phosphatase 118 (38-126) U/L Albumin 4.4 (3.5-5.1) g/dL Urine 03/08/24 Range/Units 21:17 Urine Color Yellow (Yellow) Urine Appearance Clear (Clear) Urine pH 5.5 (5.0-9.0) Ur Specific [place] 1.022 (1.001-1.035) Urine Protein Trace (Negative) mg/dL Urine Glucose (UA) Negative (Negative) mg/dL Assessment and Plan Assessment and plan (1) Dysphagia: Qualifiers: Dysphagia type: unspecified Qualified Code(s): R13.10 - Dysphagia, unspecified Code(s): R13.10 - Dysphagia, unspecified Status: Acute (2) TREV (acute kidney injury): Code(s): N17.9 - Acute kidney failure, unspecified Status: Acute Plan a pleasant 89-year-old male who unfortunately has history of terminal liver cancer, CAD status post CABG, BPH, GERD, hyperlipidemia, hypertension, recent CVA with left-sided weakness. recently discharged from [facility] on 02/18/2024. In January 2024 patient Received tenecteplase for an acute stroke. He also had extensive carotid artery disease and was suggested to follow-up in the outpatient setting. He has had difficulty swallowing and decreased p.o. intake for 1 day. Patient is a poor historian in daughter helps to provide history. Approximately 5 days prior to admission he complained of itchy throat after some procedure for dentures at the [place]. initial evaluation demonstrates 88% on room air and 92% on 1 L. a neck/chest CT demonstrates aerated secretions in the vallecula and supraglottic airway with no radiopaque foreign body. patient is admitted for acute dysphagia. His oropharynx is very dry and obstructed by thick mucus. Suctioning as needed. He will remain NPO. Speech eval ordered. Start D5 normal saline 100 cc/hour. Received 1 L lactated Ringer's in the ER. After transfer to the floor he developed acute hypoxic respiratory failure. Will check a chest x-ray, suspect aspiration pneumonia. Start Unasyn 3 g b.i.d. which is renal dose. On 02/17/2024 his creatinine is 1.5. Presented with a creatinine 1.9 and 1.7 on repeat. Suspect due to pre renal cause. mild hyperkalemia. Continue to trend. Notably, patient's daughter reports he was recently taken off of treatment for terminal liver cancer. Apparently they were referred to hospice but that had not been set up. after arriving to [place], the patient and daughter have been adamantly refusing hospice and want everything to be done. Full code. This will have to be addressed again pending his hospital course. Records requested from the [place]. full code. Protonix 40 mg IVq.a.m. hep subQ 5000 units t.i.d. guarded prognosis
[2024-03-09 06:49] LABS: Basophils Percent Auto 0.7 % (0.2-1.2); Eosinophils Absolute Auto 0.2 K/mm3 (0-0.3); Eosinophils Percent Auto 2.5 % (0-4.4); Hematocrit 31.4 % (42.0-52.0); Immature Granulocyte Absolute 0.01 K/mm3 (0.00-0.031); Immature Granulocyte Percent A 0.2 % (0-0.5); Lymphocytes Absolute Auto 0.28 K/mm3 (0.9-3.2); Lymphocytes Percent Auto 4.7 % (18.3-44.2); Mean Corpuscular Hemoglobin 29.2 pg (26-34); Mean Corpuscular Volume 83.3 fl (80-100); Mean Platelet Volume 10.4 fl (7.4-10.4); Monocytes Absolute Auto 0.6 K/mm3 (0.1-0.6); Monocytes Percent Auto 9.1 % (2.6-8.5); Neutrophils Percent Auto 82.8 % (45.5-73.1); Platelet Count Result 168 k/mm3 (150-375); Red Blood Count 3.77 M/mm3 (4.6-6.20); Red Cell Distribution Width 16.3 % (11.5-14.5)
--- NOTE | 2024-03-09 07:03 | PM.EVENT ---
Event Note Event Note Event Note: Subjective: 89 year old male with terminal liver cancer, CAD s/p CABG, BPH, GERD, HLD, HTN, and CVA with left sided deficits presents to the hospital for dysphagia. Patient is pleasant lying comfortably in bed. He continues to endorse shortness of breath on supplemental O2. He remains on Unasyn for concern of aspiration pneumonia as seen on imaging. He had a swallow study perform today. Speech recommends continued NPO status and will not move forward with MBS as patient is expected to fail. Patient remains on IV fluids at this time. Discussed with him that if he is unable to swallow we will need to consider in NG placement for nutrition. He states that he would wish to proceed at this time, however after speaking with daughter/POA their currently discussing hospice. Per daughter and patient he is to remain full code at this time until they can discuss with hospice. Care coordination aware and is following. Exam: AF HR 63 RR 20 SpO2 93 2LNC BP 124/89 General: cachectic male in no acute respiratory distress who is ill appearing, lying semi recumbent in bed. Chest: Lungs are coarse to auscultation bilaterally of the upper airway. No wheezes or crackles. CV: Heart was regular rate and rhythm. S1/S2. No murmurs, gallops, or rubs. Abd: Abdomen was soft. Nontender. Nondistended. Positive bowel sounds. No organomegaly or masses. Ext: No clubbing, cyanosis, or edema. 2+ DP pulses bilaterally. Neuro: Patient is alert and oriented x2. Speech is garbled. Plan: Dysphagia Head/neck CT revealed aerated secretions in the valleculae and supraglottic airway, suggests a swallow study. Speech therapy evaluated patient and he failed his bed side swallow study. Recommend continued NPO at this time. MBS cannot be performed as patient is expected to fail. Aspiration pneumonia Per chart review, after patient was transferred to the floor he developed acute hypoxic respiratory failure and is now requiring 2L NC of oxygen supplementation (baseline room air). Chest XR revealed minimal right pleural effusion and/or right basilar atelectasis. Will continue Unasyn for aspiration pneumonia. Patient remains afebrile, vitals remain stable on 2L NC. Speech therapy evaluated patient and he failed his bed side swallow study. Recommend continued NPO at this time. MBS cannot be performed as patient is expected to fail. TREV/hyperkalemia Improving with IV fluids, potassium WNL on am labs Monitor vital signs, I&Os, and patient is a fall risk Monitor serum electrolytes and CBC
[2024-03-09 07:07] LABS: Alanine Aminotransferase 22 U/L (6-50); Albumin Level 3.4 g/dL (3.5-5.1); Alkaline Phosphatase 98 U/L (38-126); Anion Gap 8 mmol/L (4-12); Aspartate Amino Transferase 28 U/L (17-59); Bilirubin,Total 1.2 mg/dL (0.2-1.3); Blood Urea Nitrogen 34 mg/dL (9-20); Carbon Dioxide 25 mmol/L (22-30); Chloride 113 mmol/L (98-107); Estimated CRCL calculation 23 ml/min; Estimated Glomerular Filt Rate 50; Glucose 91 mg/dL (65-110); Phosphorus 6.2 mg/dL (2.5-4.5); Potassium 4.7 mmol/L (3.4-5.0); Sodium 146 mmol/L (137-145)
[2024-03-09 07:16] LABS: Procalcitonin 0.2 ng/mL
[2024-03-09] MEDS: PANTOPRAZOLE SODIUM IV 40 MG VIAL IV PUSH (08:13)
--- NOTE | 2024-03-09 09:37 | PCSTNOTE ---
Please refer to the Bedside Swallow Evaluation in the EMR. Please note, silent aspiration cannot be ruled out at bedside. PATIENT SHOULD REMAIN NPO AT THIS TIME SECONDARY TO SEVERE RISK FOR ASPIRATION/INABILITY TO TRIGGER EFFICIENT SWALLOWS.
--- NOTE | 2024-03-09 09:46 | PCSTNOTE ---
Please refer to the Bedside Swallow Evaluation in the EMR. Please note, silent aspiration cannot be ruled out at bedside.
[2024-03-10] MEDS: DEXTROSE 5%/0.9% SOD CHL 1,000 ML 100 ML IV CONT ×2 (03:03→13:03)
[2024-03-10] MEDS: AMPICILLIN SULB 3 GM/NS 100 ML 3 GM/100 ML VIAL IVPB ×2 (04:24→17:05)
[2024-03-10] MEDS: HEPARIN SODIUM 5,000 UNITS/ML VIAL 5000 UNITS SUB-Q ×2 (05:15→13:52)
[2024-03-10 05:16] VITALS: BP 151/63; PULSE 106; RESP 14; TEMP 36.6; O2SAT 100
[2024-03-10 06:31] LABS: Basophils Percent Auto 0.6 % (0.2-1.2); Eosinophils Absolute Auto 0.2 K/mm3 (0-0.3); Eosinophils Percent Auto 4.5 % (0-4.4); Hemoglobin 10.7 g/dL (14.0-18.0); Immature Granulocyte Absolute 0.01 K/mm3 (0.00-0.031); Immature Granulocyte Percent A 0.2 % (0-0.5); Lymphocytes Absolute Auto 0.43 K/mm3 (0.9-3.2); Lymphocytes Percent Auto 9.2 % (18.3-44.2); Mean Corpuscular HGB Conc 34.5 g/dl (32-36); Mean Corpuscular Hemoglobin 28.9 pg (26-34); Mean Corpuscular Volume 83.8 fl (80-100); Mean Platelet Volume 10.5 fl (7.4-10.4); Monocytes Absolute Auto 0.5 K/mm3 (0.1-0.6); Monocytes Percent Auto 10.9 % (2.6-8.5); Neutrophils Absolute Auto 3.5 K/mm3 (1.3-6.7); Neutrophils Percent Auto 74.6 % (45.5-73.1); Platelet Count Result 156 k/mm3 (150-375); Red Cell Distribution Width 15.9 % (11.5-14.5); White Blood Count 4.7 K/mm3 (4.5-10.0)
[2024-03-10 06:55] LABS: Alanine Aminotransferase 20 U/L (6-50); Albumin Level 3.2 g/dL (3.5-5.1); Alkaline Phosphatase 95 U/L (38-126); Anion Gap 6 mmol/L (4-12); Aspartate Amino Transferase 32 U/L (17-59); Bilirubin,Total 0.9 mg/dL (0.2-1.3); Blood Urea Nitrogen 17 mg/dL (9-20); Calcium 8.9 mg/dL (8.4-10.2); Carbon Dioxide 24 mmol/L (22-30); Chloride 116 mmol/L (98-107); Estimated CRCL calculation 28 ml/min; Estimated Glomerular Filt Rate > 60; Glucose 104 mg/dL (65-110); Potassium 3.7 mmol/L (3.4-5.0); Sodium 146 mmol/L (137-145)
[2024-03-10 08:00] VITALS: O2SAT 100
[2024-03-10] MEDS: PANTOPRAZOLE SODIUM IV 40 MG VIAL IV PUSH (09:19)
[2024-03-10 14:00] VITALS: BP 140/77; PULSE 100; RESP 14; TEMP 37; O2SAT 100
--- NOTE | 2024-03-10 14:03 | P.PNIM_ITS ---
Progress Note: A&P Assessment and Plan (1) Dysphagia: Qualifiers: Dysphagia type: unspecified Qualified Code(s): R13.10 - Dysphagia, unspecified Code(s): R13.10 - Dysphagia, unspecified Status: Acute (2) Hepatic carcinoma: Code(s): C22.0 - Liver cell carcinoma Status: Acute (3) Severe protein-calorie malnutrition: Code(s): E43 - Unspecified severe protein-calorie malnutrition Status: Acute (4) Aspiration pneumonia: Code(s): J69.0 - Pneumonitis due to inhalation of food and vomit Status: Acute Plan Dysphagia * Head/neck CT revealed aerated secretions in the valleculae and supraglottic airway, suggests a swallow study. * Speech therapy evaluated patient and he failed his bed side swallow study. Recommend continued NPO at this time. MBS cannot be performed as patient is expected to fail. * 03/10/2024 ST patient improved * POA does not want a peg tube plan is for hospice care * IV fluids will inpatient aspiration Pneumonia * ampicillian IV * Speech following * NPO * Suppplemental OS as needed * family does not want a feeding tube * normal WBC Liver carcinoma * Terminal/inoperable * oncologist at [facility] * Plan for hospice care at this time Severe malnutrition secondary to poor protein and caloric intake * terminal liver cancer * encourage oral intake if patient dysphagia improves * family does not want a feeding tube HX CVA: Brilinta and statin resumed HX BPH: resume finasteride Code status: DNR/DNI per patient and POA DVT prophylaxis: SCD's Stress ulcer prophylaxis: Protonix 40 daily PT/OT notes: NA Disposition: CC working on hospice placement through the [place] Time Spent With Patient Time with patient: 15 - 25 minutes Subjective Date/time seen: 03/10/24 14:03 Interval history: Admission: Medical Record Narrative: a pleasant 89-year-old male who unfortunately has history of terminal liver cancer, CAD status post CABG, BPH, GERD, hyperlipidemia, hypertension, recent CVA with left-sided weakness. recently discharged from [facility] on 02/18/2024. He has had difficulty swallowing and decreased p.o. intake for 1 day. Patient is a poor historian in daughter helps to provide history. Approximately 5 days prior to admission he complained of itchy throat. noted he cannot tolerate his secretions either. initial evaluation demonstrates 88% on room air and 92% on 1 L. a neck/chest CT demonstrates aerated secretions in the vallecula and supraglottic airway with no radiopaque foreign body. Patient is pleasant lying comfortably in bed. He continues to endorse shortness of breath on supplemental O2. He remains on Unasyn for concern of aspiration pneumonia as seen on imaging. He had a swallow study perform today. Speech recommends continued NPO status and will not move forward with MBS as patient is expected to fail. Patient remains on IV fluids at this time. Discussed with him that if he is unable to swallow we will need to consider in NG placement for nutrition. He states that he would wish to proceed at this time, however after speaking with daughter/POA their currently discussing hospice. Per daughter and patient he is to remain full code at this time until they can discuss with hospice. Care coordination aware and is following. 03/10/2024: Assumed care Patient lethargic with minimal conversation or interest. Family at bedside (POA) and had long discussion regarding patient prognosis and possible treatment for his new dysphagia including placing a feeding tube for nutrition vs Hospice care due to patient inoperable terminal liver cancer diagnosis. Stephani WAGGONER has requested patient be a DNR/DNI and [facility]. Review of Systems Review of Systems: All systems reviewed & are unremarkable except as noted in HPI and below ( Subjective) Exam Const: General: comfortable and no acute distress Other: A&O x2. Cachectic weak and unable/ unwilling to participate with motor exam HENMT: Other: extremely dry mucous membranes with copious and thick yellow mucus secretion in the oropharynx. Eyes: Pupils: Equal, round and reactive pupils present Neck: Neck: supple Resp: Effort & Inspection: normal respiratory effort Other: junky upper airway sounds Cardio: Rate: regular rate Rhythm: regular rhythm Neuro: Cranial nerves: Yes Equal, round and reactive pupils present Extrem: General: no edema Objective Data Vital Signs Vital Signs: Vital Signs - 24 hr 03/09/24 20:40 03/09/24 21:28 03/10/24 05:16 Temperature 99.1 F 97.9 F Pulse Rate 99 112 H 106 H Respiratory Rate 14 17 14 Blood Pressure 137/60 151/63 H Pulse Oximetry 100 100 100 Oxygen Delivery Nasal Cannula Oxygen Flow Rate 2 Fraction of Inspired Oxygen 28 03/24 08:00 Temperature Pulse Rate Respiratory Rate Blood Pressure Pulse Oximetry 100 Oxygen Delivery Nasal Cannula Oxygen Flow Rate 2 Fraction of Inspired Oxygen Intake/Output Intake/Output: Intake & Output 03/07/24 03/08/24 03/09/24 03/10/24 23:59 23:59 23:59 23:59 Intake Total 1000 2173.3 2000 Output Total 0 Balance 1000 2173.3 1999 Meds/Results Medications: Active Medications Generic Name Dose Route Start Last Admin Trade Name Freq PRN Reason Stop Dose Admin Heparin Sodium (Porcine) 5,000 units 03/09/24 06:00 03/10/24 13:52 Heparin Sodium 5,000 Units/Ml Vial SUB-Q 5,000 units Q8HR MERCEDEZ Administration Ampicillin Sodium/Sulbactam Sodium 3 gm in 100 mls @ 200 mls/hr 03/09/24 05:00 03/10/24 04:24 Unasyn 3 Gm/Ns 100 Ml IVPB 200 mls/hr Q12H MERCEDEZ Administration Dextrose/Sodium Chloride 1,000 mls @ 100 mls/hr 03/09/24 04:45 03/10/24 13:03 Dextrose 5% Sodium Chloride 0.9% IV CONT 100 mls/hr .Q10H MERCEDEZ Administration Pantoprazole Sodium 40 mg 03/09/24 09:00 03/10/24 09:19 Pantoprazole Sodium Iv 40 Mg Vial IV PUSH 40 mg QAM [facility]CEDEZ Administration Radiology Results: ITS Impressions Neck/Chest CT 03/08/24 21:55 IMPRESSION: Aerated secretions in the valleculae and supraglottic airway. No radiopaque foreign body detected in the airways. If symptoms persist consider referral for endoscopy and/or swallowing study with esophagogram. No acute thoracic process detected. Chest X-Ray 03/09/24 05:52 Impression: Minimal right pleural effusion and/or right basilar atelectasis. Elevated left hemidiaphragm. Labs Labs: Laboratory Results - last 24 hr 03/10/24 05:32 WBC 4.7 RBC 3.70 L Hgb 10.7 L Hct 31.0 L MCV 83.8 MCH 28.9 MCHC 34.5 RDW 15.9 H Plt Count 156 MPV 10.5 H Immature Gran % (Auto) 0.2 Neut % (Auto) 74.6 H Lymph % (Auto) 9.2 L Clay % (Auto) 10.9 H Eos % (Auto) 4.5 H Baso % (Auto) 0.6 Lymph # (Auto) 0.43 L Clay # (Auto) 0.5 Eos # (Auto) 0.2 Baso # (Auto) 0.0 Abs Immat Gran (auto) 0.01 Absolute Neuts (auto) 3.5 Absolute Nucleated RBC 0.000 Nucleated RBC % 0.0 Sodium 146 H Potassium 3.7 Chloride 116 H Carbon Dioxide 24 Anion Gap 6 BUN 17 D Creatinine 1.30 Estim Creat Clear Calc 28 Estimated GFR > 60 Glucose 104 Calcium 8.9 Total Bilirubin 0.9 AST 32 ALT 20 Alkaline Phosphatase 95 Total Protein 6.0 L Albumin 3.2 L Quality VTE Prophylaxis VTE prophylaxis: mechanical ordered and pharmacologic ordered -Patient's previous records reviewed on admission -ER notes reviewed in detail on admission -discussed all findings and current treatment plan with patient/Family/POA -Consultations reviewed for recommendations -Patient's disposition for safe discharge discussed with adult protective caseworker Dictation performed by [employer] direct speech recognition software, therefore milk deliverer variants and typographical errors may occur. Hospitalist MIPS Advance Care Plan I have confirmed that the patient's Advanced Care Plan is present, code status is documented, or surrogate decision maker is listed in patient medical record.: Yes Medication Reconciliation I have utilized all available resources to obtain, update and review the patients current medications (includes all prescriptions, OTC, herbals, cannabis, and nutritional supplements).: Yes
[2024-03-10 21:20] VITALS: BP 131/75; PULSE 123; RESP 20; TEMP 36.4; O2SAT 100
[2024-03-11] MEDS: DEXTROSE 5%/0.9% SOD CHL 1,000 ML 100 ML IV CONT ×2 (00:45→19:46)
[2024-03-11 06:00] VITALS: BP 179/64; PULSE 104; RESP 20; TEMP 36.4; O2SAT 100
[2024-03-11 06:59] VITALS: BP 159/46
[2024-03-11 09:05] VITALS: O2SAT 100
--- NOTE | 2024-03-11 12:07 | P.PNIM_ITS ---
Progress Note: A&P Assessment and Plan (1) Dysphagia: Qualifiers: Dysphagia type: unspecified Qualified Code(s): R13.10 - Dysphagia, unspecified Code(s): R13.10 - Dysphagia, unspecified Status: Acute (2) Hepatic carcinoma: Code(s): C22.0 - Liver cell carcinoma Status: Acute (3) Severe protein-calorie malnutrition: Code(s): E43 - Unspecified severe protein-calorie malnutrition Status: Acute (4) Aspiration pneumonia: Code(s): J69.0 - Pneumonitis due to inhalation of food and vomit Status: Acute Plan Dysphagia * Head/neck CT revealed aerated secretions in the valleculae and supraglottic airway, suggests a swallow study. * Speech therapy evaluated patient and he failed his bed side swallow study. Recommend continued NPO at this time. MBS cannot be performed as patient is expected to fail. * 03/10/2024 ST patient improved * POA does not want a peg tube plan is for hospice care * IV fluids will inpatient aspiration Pneumonia * ampicillian IV * Speech following * NPO * Suppplemental OS as needed * family does not want a feeding tube * normal WBC Liver carcinoma * Terminal/inoperable * oncologist at [facility] * Plan for hospice care at this time Severe malnutrition secondary to poor protein and caloric intake * terminal liver cancer * encourage oral intake if patient dysphagia improves * family does not want a feeding tube HX CVA: Brilinta and statin resumed HX BPH: resume finasteride Code status: DNR/DNI per patient and POA DVT prophylaxis: SCD's Stress ulcer prophylaxis: Protonix 40 daily PT/OT notes: NA Disposition: CC working on hospice placement through the [place] Time Spent With Patient Time with patient: 15 - 25 minutes Subjective Date/time seen: 03/11/24 12:07 Interval history: Admission: Medical Record Narrative: a pleasant 89-year-old male who unfortunately has history of terminal liver cancer, CAD status post CABG, BPH, GERD, hyperlipidemia, hypertension, recent CVA with left-sided weakness. recently discharged from [facility] on 02/18/2024. He has had difficulty swallowing and decreased p.o. intake for 1 day. Patient is a poor historian in daughter helps to provide history. Approximately 5 days prior to admission he complained of itchy throat. noted he cannot tolerate his secretions either. initial evaluation demonstrates 88% on room air and 92% on 1 L. a neck/chest CT demonstrates aerated secretions in the vallecula and supraglottic airway with no radiopaque foreign body. Patient is pleasant lying comfortably in bed. He continues to endorse shortness of breath on supplemental O2. He remains on Unasyn for concern of aspiration pneumonia as seen on imaging. He had a swallow study perform today. Speech recommends continued NPO status and will not move forward with MBS as patient is expected to fail. Patient remains on IV fluids at this time. Discussed with him that if he is unable to swallow we will need to consider in NG placement for nutrition. He states that he would wish to proceed at this time, however after speaking with daughter/POA their currently discussing hospice. Per daughter and patient he is to remain full code at this time until they can discuss with hospice. Care coordination aware and is following. 03/10/2024: Assumed care Patient lethargic with minimal conversation or interest. Family at bedside (POA) and had long discussion regarding patient prognosis and possible treatment for his new dysphagia including placing a feeding tube for nutrition vs Hospice care due to patient inoperable terminal liver cancer diagnosis. Stephani WAGGONER has requested patient be a DNR/DNI and CC [facility] 03/11/2024: Patient alert today but reports constipation will order a suppository. Currently waiting on [place] to set-up patient hospice at [place]. Will continue with NPO and working with ST. Review of Systems Review of Systems: All systems reviewed & are unremarkable except as noted in HPI and below ( Subjective) Exam Const: General: comfortable and no acute distress Other: A&O x2. Cachectic weak and unable/ unwilling to participate with motor exam HENMT: Other: extremely dry mucous membranes with copious and thick yellow mucus secretion in the oropharynx. Eyes: Pupils: Equal, round and reactive pupils present Neck: Neck: supple Resp: Effort & Inspection: normal respiratory effort Other: junky upper airway sounds Cardio: Rate: regular rate Rhythm: regular rhythm Neuro: Cranial nerves: Yes Equal, round and reactive pupils present Extrem: General: no edema Objective Data Vital Signs Vital Signs: Vital Signs - 24 hr 03/10/24 14:00 03/10/24 21:20 03/11/24 06:00 Temperature 98.6 F 97.5 F L 97.6 F Pulse Rate 100 123 H 104 H Respiratory Rate 14 20 20 Blood Pressure 140/77 131/75 179/64 H Pulse Oximetry 100 100 100 Oxygen Delivery Oxygen Flow Rate 03/11/24 06:59 03/11/24 09:05 Temperature Pulse Rate Respiratory Rate Blood Pressure 159/46 H Pulse Oximetry 100 Oxygen Delivery Nasal Cannula Oxygen Flow Rate 2 Intake/Output Intake/Output: Intake & Output 03/08/24 03/09/24 03/10/24 03/11/24 23:59 23:59 23:59 23:59 Intake Total 1000 2173.3 3200 20 Output Total 0 Balance 1000 2173.3 3200 20 Meds/Results Medications: Active Medications Generic Name Dose Route Start Last Admin Trade Name Freq PRN Reason Stop Dose Admin Bisacodyl 10 mg 03/11/24 12:06 Bisacodyl 10 Mg Suppository RECTAL QAM PRN Constipation Heparin Sodium (Porcine) 5,000 units 03/09/24 06:00 03/11/24 06:01 Heparin Sodium 5,000 Units/Ml Vial SUB-Q Not Given Q8HR [facility]CEDE[facility] Ampicillin Sodium/Sulbactam Sodium 3 gm in 100 mls @ 200 mls/hr 03/09/24 05:00 03/11/24 06:02 Unasyn 3 Gm/Ns 100 Ml IVPB Not Given Q12H MERCEDEZ Dextrose/Sodium Chloride 1,000 mls @ 100 mls/hr 03/09/24 04:45 03/11/24 00:45 Dextrose 5% Sodium Chloride 0.9% IV CONT 100 mls/hr .Q10H MERCEDEZ Administration Morphine Sulfate 1 mg 03/11/24 07:29 Morphine Sulfate (*Crx) 2 Mg/Ml Inj IV PUSH Q4H PRN Pain Rated 6 or Greater Pantoprazole Sodium 40 mg 03/09/24 09:00 03/10/24 09:19 Pantoprazole Sodium Iv 40 Mg Vial IV PUSH 40 mg QAM MERCEDEZ Administration Radiology Results: ITS Impressions Neck/Chest CT 03/08/24 21:55 IMPRESSION: Aerated secretions in the valleculae and supraglottic airway. No radiopaque foreign body detected in the airways. If symptoms persist consider referral for endoscopy and/or swallowing study with esophagogram. No acute thoracic process detected. Chest X-Ray 03/09/24 05:52 Impression: Minimal right pleural effusion and/or right basilar atelectasis. Elevated left hemidiaphragm. Quality VTE Prophylaxis VTE prophylaxis: mechanical ordered and pharmacologic ordered -Patient's previous records reviewed on admission -ER notes reviewed in detail on admission -discussed all findings and current treatment plan with patient/Family/POA -Consultations reviewed for recommendations -Patient's disposition for safe discharge discussed with geriatric case manager Dictation performed by [email or web address] direct speech recognition software, therefore production support developer variants and typographical errors may occur. Hospitalist MIPS Advance Care Plan I have confirmed that the patient's Advanced Care Plan is present, code status is documented, or surrogate decision maker is listed in patient medical record.: Yes Medication Reconciliation I have utilized all available resources to obtain, update and review the patients current medications (includes all prescriptions, OTC, herbals, cannabis, and nutritional supplements).: Yes
[2024-03-11] MEDS: BISACODYL 10 MG SUPPOSITORY RECTAL (12:26)
[2024-03-11] MEDS: PANTOPRAZOLE SODIUM IV 40 MG VIAL IV PUSH (13:12)
[2024-03-11] MEDS: AMPICILLIN SULB 3 GM/NS 100 ML 3 GM/100 ML VIAL IVPB (13:57)
[2024-03-11 14:00] VITALS: BP 122/49; PULSE 98; RESP 16; TEMP 36.7; O2SAT 100
[2024-03-11 14:32] VITALS: O2SAT 96
[2024-03-11] MEDS: MORPHINE SULFATE (*CRX) 2 MG/ML INJ 1 MG IV PUSH (15:32)
[2024-03-11] MEDS: HEPARIN SODIUM 5,000 UNITS/ML VIAL 5000 UNITS SUB-Q (20:43)
[2024-03-11 21:41] VITALS: BP 167/76; PULSE 104; RESP 14; TEMP 36.3; O2SAT 100
[2024-03-12] MEDS: AMPICILLIN SULB 3 GM/NS 100 ML 3 GM/100 ML VIAL IVPB ×2 (01:08→13:59)
[2024-03-12 06:00] VITALS: BP 131/62; PULSE 85; RESP 14; TEMP 36.1; O2SAT 98
[2024-03-12] MEDS: DEXTROSE 5%/0.9% SOD CHL 1,000 ML 100 ML IV CONT (07:13)
[2024-03-12 09:24] LABS: Basophils Percent Auto 0.6 % (0.2-1.2); Eosinophils Absolute Auto 0.2 K/mm3 (0-0.3); Eosinophils Percent Auto 4.1 % (0-4.4); Hematocrit 31.3 % (42.0-52.0); Hemoglobin 11.5 g/dL (14.0-18.0); Immature Granulocyte Absolute 0.02 K/mm3 (0.00-0.031); Immature Granulocyte Percent A 0.4 % (0-0.5); Lymphocytes Absolute Auto 0.53 K/mm3 (0.9-3.2); Lymphocytes Percent Auto 9.8 % (18.3-44.2); Mean Corpuscular HGB Conc 36.7 g/dl (32-36); Mean Corpuscular Hemoglobin 29.5 pg (26-34); Mean Corpuscular Volume 80.3 fl (80-100); Mean Platelet Volume 9.8 fl (7.4-10.4); Monocytes Absolute Auto 0.5 K/mm3 (0.1-0.6); Neutrophils Absolute Auto 4.1 K/mm3 (1.3-6.7); Neutrophils Percent Auto 76.1 % (45.5-73.1); Platelet Count Result 149 k/mm3 (150-375); Red Cell Distribution Width 15.7 % (11.5-14.5); White Blood Count 5.4 K/mm3 (4.5-10.0)
[2024-03-12] MEDS: HEPARIN SODIUM 5,000 UNITS/ML VIAL 5000 UNITS SUB-Q (09:27)
[2024-03-12] MEDS: PANTOPRAZOLE SODIUM IV 40 MG VIAL IV PUSH (09:27)
[2024-03-12 09:43] LABS: Alanine Aminotransferase 18 U/L (6-50); Alkaline Phosphatase 88 U/L (38-126); Anion Gap 2 mmol/L (4-12); Aspartate Amino Transferase 35 U/L (17-59); Bilirubin,Total 0.9 mg/dL (0.2-1.3); Blood Urea Nitrogen 7 mg/dL (9-20); Calcium 8.8 mg/dL (8.4-10.2); Carbon Dioxide 26 mmol/L (22-30); Chloride 114 mmol/L (98-107); Estimated CRCL calculation 32 ml/min; Estimated Glomerular Filt Rate > 60; Glucose 109 mg/dL (65-110); Potassium 3.8 mmol/L (3.4-5.0); Sodium 142 mmol/L (137-145)
--- NOTE | 2024-03-12 09:43 | PCDIET ---
Pt remains NPO, plans to proceed with hospice care. No nutrition recommendations at this time.
--- NOTE | 2024-03-12 11:12 | P.PNIM_ITS ---
Progress Note: A&P Assessment and Plan (1) Dysphagia: Qualifiers: Dysphagia type: unspecified Qualified Code(s): R13.10 - Dysphagia, unspecified Code(s): R13.10 - Dysphagia, unspecified Status: Acute (2) Hepatic carcinoma: Code(s): C22.0 - Liver cell carcinoma Status: Acute (3) Severe protein-calorie malnutrition: Code(s): E43 - Unspecified severe protein-calorie malnutrition Status: Acute (4) Aspiration pneumonia: Code(s): J69.0 - Pneumonitis due to inhalation of food and vomit Status: Acute Plan Dysphagia * Head/neck CT revealed aerated secretions in the valleculae and supraglottic airway, suggests a swallow study. * Speech therapy evaluated patient and he failed his bed side swallow study. Recommend continued NPO at this time. MBS cannot be performed as patient is expected to fail. * 03/10/2024 ST patient improved * POA does not want a peg tube plan is for hospice care * IV fluids will inpatient 03/12/2024 * Comfort feed * [facility] to work with him * currently waiting on hospice approval aspiration Pneumonia * ampicillian IV * Speech following * NPO * Suppplemental OS as needed * family does not want a feeding tube * normal WBC Liver carcinoma * Terminal/inoperable * oncologist at [facility] * Plan for hospice care at this time Severe malnutrition secondary to poor protein and caloric intake * terminal liver cancer * encourage oral intake if patient dysphagia improves * family does not want a feeding tube HX CVA: Brilinta and statin resumed HX BPH: resume finasteride Code status: DNR/DNI per patient and POA DVT prophylaxis: SCD's Stress ulcer prophylaxis: Protonix 40 daily PT/OT notes: NA Disposition: CC working on hospice placement through the [place] Time Spent With Patient Time with patient: 15 - 25 minutes Subjective Date/time seen: 03/12/24 11:12 Interval history: Admission: Medical Record Narrative: a pleasant 89-year-old male who unfortunately has history of terminal liver cancer, CAD status post CABG, BPH, GERD, hyperlipidemia, hypertension, recent CVA with left-sided weakness. recently discharged from [facility] on 02/18/2024. He has had difficulty swallowing and decreased p.o. intake for 1 day. Patient is a poor historian in daughter helps to provide history. Approximately 5 days prior to admission he complained of itchy throat. noted he cannot tolerate his secretions either. initial evaluation demonstrates 88% on room air and 92% on 1 L. a neck/chest CT demonstrates aerated secretions in the vallecula and supraglottic airway with no radiopaque foreign body. Patient is pleasant lying comfortably in bed. He continues to endorse shortness of breath on supplemental O2. He remains on Unasyn for concern of aspiration pneumonia as seen on imaging. He had a swallow study perform today. Speech recommends continued NPO status and will not move forward with MBS as patient is expected to fail. Patient remains on IV fluids at this time. Discussed with him that if he is unable to swallow we will need to consider in NG placement for nutrition. He states that he would wish to proceed at this time, however after speaking with daughter/POA their currently discussing hospice. Per daughter and patient he is to remain full code at this time until they can discuss with hospice. Care coordination aware and is following. 03/10/2024: Assumed care Patient lethargic with minimal conversation or interest. Family at bedside (POA) and had long discussion regarding patient prognosis and possible treatment for his new dysphagia including placing a feeding tube for nutrition vs Hospice care due to patient inoperable terminal liver cancer diagnosis. Stephani WAGGONER has requested patient be a DNR/DNI and CC [facility] 03/11/2024: Patient alert today but reports constipation will order a suppository. Currently waiting on [place] to set-up patient hospice at [place]. Will continue with NPO and working with ST. 03/12/2024: Patient wanting to eat spoke with patient and daughter at bedside about risks of aspiration however patient is going hospice and doing comfort feeds, they agreed with plan and understood the risk, ST is sill working with patient currently just waiting [facility] Review of Systems Review of Systems: All systems reviewed & are unremarkable except as noted in HPI and below ( Subjective) Exam Const: General: comfortable and no acute distress Other: A&O x2. Cachectic weak and unable/ unwilling to participate with motor exam HENMT: Other: extremely dry mucous membranes with copious and thick yellow mucus secretion in the oropharynx. Eyes: Pupils: Equal, round and reactive pupils present Neck: Neck: supple Resp: Effort & Inspection: normal respiratory effort Other: junky upper airway sounds Cardio: Rate: regular rate Rhythm: regular rhythm Neuro: Cranial nerves: Yes Equal, round and reactive pupils present Extrem: General: no edema Objective Data Vital Signs Vital Signs: Vital Signs - 24 hr 03/11/24 14:32 03/11/24 14:00 03/11/24 21:41 Temperature 98.0 F 97.3 F L Pulse Rate 98 104 H Respiratory Rate 16 14 Blood Pressure 122/49 L 167/76 H Pulse Oximetry 96 100 100 Oxygen Delivery Nasal Cannula Oxygen Flow Rate 2 03/12/24 06:00 Temperature 96.9 F L Pulse Rate 85 Respiratory Rate 14 Blood Pressure 131/62 Pulse Oximetry 98 Oxygen Delivery Oxygen Flow Rate Intake/Output Intake/Output: Intake & Output 03/09/24 03/10/24 03/11/24 03/12/24 23:59 23:59 23:59 23:59 Intake Total 2173.3 3200 1120 1100 Output Total 0 Balance 2173.3 3200 1120 1100 Meds/Results Medications: Active Medications Generic Name Dose Route Start Last Admin Trade Name Freq PRN Reason Stop Dose Admin Bisacodyl 10 mg 03/11/24 12:06 03/11/24 12:26 Bisacodyl 10 Mg Suppository RECTAL 10 mg QAM PRN Administration Constipation Heparin Sodium (Porcine) 5,000 units 03/09/24 06:00 03/12/24 09:27 Heparin Sodium 5,000 Units/Ml Vial SUB-Q 5,000 units Q8HR MERCEDEZ Administration Dextrose/Sodium Chloride 1,000 mls @ 100 mls/hr 03/09/24 04:45 03/12/24 07:13 Dextrose 5% Sodium Chloride 0.9% IV CONT 100 mls/hr .Q10H MERCEDEZ Administration Ampicillin Sodium/Sulbactam Sodium 3 gm in 100 mls @ 200 mls/hr 03/11/24 14:00 03/12/24 01:38 Unasyn 3 Gm/Ns 100 Ml IVPB Infused Q12H MERCEDEZ Infusion Morphine Sulfate 1 mg 03/11/24 07:29 03/11/24 15:32 Morphine Sulfate (*Crx) 2 Mg/Ml Inj IV PUSH 1 mg Q4H PRN Administration Pain Rated 6 or Greater Pantoprazole Sodium 40 mg 03/09/24 09:00 03/12/24 09:27 Pantoprazole Sodium Iv 40 Mg Vial IV PUSH 40 mg QAM MERCEDEZ Administration Radiology Results: ITS Impressions Neck/Chest CT 03/08/24 21:55 IMPRESSION: Aerated secretions in the valleculae and supraglottic airway. No radiopaque foreign body detected in the airways. If symptoms persist consider referral for endoscopy and/or swallowing study with esophagogram. No acute thoracic process detected. Chest X-Ray 03/09/24 05:52 Impression: Minimal right pleural effusion and/or right basilar atelectasis. Elevated left hemidiaphragm. Labs Labs: Laboratory Results - last 24 hr 03/12/24 09:16 WBC 5.4 RBC 3.90 L Hgb 11.5 L Hct 31.3 L MCV 80.3 MCH 29.5 MCHC 36.7 H RDW 15.7 H Plt Count 149 L MPV 9.8 Immature Gran % (Auto) 0.4 Neut % (Auto) 76.1 H Lymph % (Auto) 9.8 L Dade % (Auto) 9.0 H Eos % (Auto) 4.1 Baso % (Auto) 0.6 Lymph # (Auto) 0.53 L Dade # (Auto) 0.5 Eos # (Auto) 0.2 Baso # (Auto) 0.0 Abs Immat Gran (auto) 0.02 Absolute Neuts (auto) 4.1 Absolute Nucleated RBC 0.000 Nucleated RBC % 0.0 Sodium 142 Potassium 3.8 Chloride 114 H Carbon Dioxide 26 Anion Gap 2 L BUN 7 L D Creatinine 1.10 Estim Creat Clear Calc 32 Estimated GFR > 60 Glucose 109 Calcium 8.8 Total Bilirubin 0.9 AST 35 ALT 18 Alkaline Phosphatase 88 Total Protein 6.0 L Albumin 3.0 L Quality VTE Prophylaxis VTE prophylaxis: mechanical ordered and pharmacologic ordered -Patient's previous records reviewed on admission -ER notes reviewed in detail on admission -discussed all findings and current treatment plan with patient/Family/POA -Consultations reviewed for recommendations -Patient's disposition for safe discharge discussed with caser in Dictation performed by MICHAEL [employer] direct speech recognition software, therefore flake or shred roll operator variants and typographical errors may occur. Hospitalist MIPS Advance Care Plan I have confirmed that the patient's Advanced Care Plan is present, code status is documented, or surrogate decision maker is listed in patient medical record.: Yes Medication Reconciliation I have utilized all available resources to obtain, update and review the patients current medications (includes all prescriptions, OTC, herbals, cannabis, and nutritional supplements).: Yes
[2024-03-12 13:40] VITALS: O2SAT 95
[2024-03-12 14:00] VITALS: BP 146/80; PULSE 52; RESP 14; TEMP 36.6; O2SAT 97
--- NOTE | 2024-03-12 15:25 | P.DS_ITS ---
DS: Admitting Diagnosis Discharge Date 03/12/2024 Admitting Diagnosis Dysphagia/Terminal liver cancer DS: Discharge Diagnosis Discharge Diagnosis (1) Dysphagia: Qualifiers: Dysphagia type: unspecified Qualified Code(s): R13.10 - Dysphagia, unspecified Code(s): R13.10 - Dysphagia, unspecified Status: Acute (2) Hepatic carcinoma: Code(s): C22.0 - Liver cell carcinoma Status: Acute (3) Severe protein-calorie malnutrition: Code(s): E43 - Unspecified severe protein-calorie malnutrition Status: Acute (4) Aspiration pneumonia: Code(s): J69.0 - Pneumonitis due to inhalation of food and vomit Status: Acute Plan Dysphagia * Head/neck CT revealed aerated secretions in the valleculae and supraglottic airway, suggests a swallow study. * Speech therapy evaluated patient and he failed his bed side swallow study. Recommend continued NPO at this time. MBS cannot be performed as patient is expected to fail. * 03/10/2024 ST patient improved * POA does not want a peg tube plan is for hospice care * IV fluids will inpatient 03/12/2024 * Comfort feed * [facility] to work with him * currently waiting on hospice approval aspiration Pneumonia * ampicillian IV * Speech following * NPO * Suppplemental OS as needed * family does not want a feeding tube * normal WBC Liver carcinoma * Terminal/inoperable * oncologist at [facility] * Plan for hospice care at this time Severe malnutrition secondary to poor protein and caloric intake * terminal liver cancer * encourage oral intake if patient dysphagia improves * family does not want a feeding tube HX CVA: Brilinta and statin resumed HX BPH: resume finasteride Disposition: Discharged to [place] on hospice care DS: Summary Hospital Course Reason for hospitalization: Dysphagia/Terminal liver cancer Hospital Course: Interval history: Admission: Medical Record Narrative: a pleasant 89-year-old male who unfortunately has history of terminal liver cancer, CAD status post CABG, BPH, GERD, hyperlipidemia, hypertension, recent CVA with left-sided weakness. recently discharged from [facility] on 02/18/2024. He has had difficulty swallowing and decreased p.o. intake for 1 day. Patient is a poor historian in daughter helps to provide history. Approximately 5 days prior to admission he complained of itchy throat. noted he cannot tolerate his secretions either. initial evaluation demonstra zahraa 88% on room air and 92% on 1 L. a neck/chest CT demonstrates aerated secretions in the vallecula and supraglottic airway with no radiopaque foreign body. Patient is pleasant lying comfortably in bed. He continues to endorse shortness of breath on supplemental O2. He remains on Unasyn for concern of aspiration pneumonia as seen on imaging. He had a swallow study perform today. Speech recommends continued NPO status and will not move forward with MBS as patient is expected to fail. Patient remains on IV fluids at this time. Discussed with him that if he is unable to swallow we will need to consider in NG placement for nutrition. He states that he would wish to proceed at this time, however after speaking with daughter/POA their currently discussing hospice. Per daughter and patient he is to remain full code at this time until they can discuss with hospice. Care coordination aware and is following. 03/10/2024: Assumed care Patient lethargic with minimal conversation or interest. Family at bedside (POA) and had long discussion regarding patient prognosis and possible treatment for his new dysphagia including placing a feeding tube for nutrition vs Hospice care due to patient inoperable terminal liver cancer diagnosis. Stephani WAGGONER has requested patient be a DNR/DNI and [facility]. 03/11/2024: Patient alert today but reports constipation will order a suppository. Currently waiting on [place] to set-up patient hospice at [place]. Will continue with NPO and working with ST. 03/12/2024: Discharged Patient wanting to eat spoke with patient and daughter at bedside about risks of aspiration however patient is going hospice and doing comfort feeds, they agreed with plan and understood the risk. Hospice approval was received and patient was transferred to [place] on hospice care via ambulance. Status at Discharge Overall status at discharge: other (Terminal ) Time Spent with Patient Time attestation: Total time spent providing and/or coordinating discharge services: Time spent: Greater than 30 minutes Exam Const: General: comfortable and no acute distress Other: A&O x2. Cachectic weak and unable/ unwilling to participate with motor exam HENMT: Other: extremely dry mucous membranes with copious and thick yellow mucus secretion in the oropharynx. Eyes: Pupils: Equal, round and reactive pupils present Neck: Neck: supple Resp: Effort & Inspection: normal respiratory effort Other: junky upper airway sounds Cardio: Rate: regular rate Rhythm: regular rhythm Neuro: Cranial nerves: Yes Equal, round and reactive pupils present Extrem: General: no edema DS: Data Data Completed and Pending Labs on day of discharge: Labs from last 24 hours 03/12/24 09:16 WBC 5.4 RBC 3.90 L Hgb 11.5 L Hct 31.3 L MCV 80.3 MCH 29.5 MCHC 36.7 H RDW 15.7 H Plt Count 149 L MPV 9.8 Immature Gran % (Auto) 0.4 Neut % (Auto) 76.1 H Lymph % (Auto) 9.8 L [place] % (Auto) 9.0 H Eos % (Auto) 4.1 Baso % (Auto) 0.6 Lymph # (Auto) 0.53 L [place] # (Auto) 0.5 Eos # (Auto) 0.2 Baso # (Auto) 0.0 Abs Immat Gran (auto) 0.02 Absolute Neuts (auto) 4.1 Absolute Nucleated RBC 0.000 Nucleated RBC % 0.0 Sodium 142 Potassium 3.8 Chloride 114 H Carbon Dioxide 26 Anion Gap 2 L BUN 7 L D Creatinine 1.10 Estim Creat Clear Calc 32 Estimated GFR > 60 Glucose 109 Calcium 8.8 Total Bilirubin 0.9 AST 35 ALT 18 Alkaline Phosphatase 88 Total Protein 6.0 L Albumin 3.0 L Imaging Radiologist's impression: Radiology Results: ITS Impressions Neck/Chest CT 03/08/24 21:55 IMPRESSION: Aerated secretions in the valleculae and supraglottic airway. No radiopaque foreign body detected in the airways. If symptoms persist consider referral for endoscopy and/or swallowing study with esophagogram. No acute thoracic process detected. Chest X-Ray 03/09/24 05:52 Impression: Minimal right pleural effusion and/or right basilar atelectasis. Elevated left hemidiaphragm. Additional Comments Additional comments: -Patient's previous records reviewed on admission -ER notes reviewed in detail on admission -discussed all findings and current treatment plan with patient/Family/POA -Consultations reviewed for recommendations -Patient's disposition for safe discharge discussed with nurse case management Dictation performed by [employer] direct speech recognition software, therefore house player variants and typographical errors may occur. Discharge Plan Discharge Attending physician on discharge: Yue Polo Discharging Clinician: Sarah Barton Anticipated Discharge Date/Time: 03/12/24 15:24 Patient Disposition: Hospice - Medical Facility Activity: may shower, unlimited and as tolerated Diet: as tolerated Patient Language: Botswanan Stand Alone Forms: General Discharge Information, Assisted Discharge Discharge Medications: Continued megestrol 400 mg/10 mL (40 mg/mL) Suspension 400 mg PO DAILY folic acid 400 mcg Tablet 0.4 mg PO DAILY bisacodyl 10 mg Suppository 10 mg RECTAL DAILY PRN (Reason: Constipation) metoprolol succinate 25 mg Tablet Extended Release 24 Hr 12.5 mg PO DAILY acidophilus-pectin, citrus 100 million cell-10 mg Capsule 1 cap PO DAILY atorvastatin [Lipitor] 40 mg Tablet 40 mg PO DAILY aspirin 81 mg Tablet,Delayed Release (Dr/Ec) 81 mg PO DAILY docusate sodium 100 mg Capsule 100 mg PO BID finasteride 5 mg Tablet 5 mg PO DAILY ticagrelor 90 mg Tablet 90 mg PO Q12H omeprazole 20 mg Capsule,Delayed Release(Dr/Ec) 20 mg PO DAILY cholecalciferol (vitamin D3) [Vitamin D3] 25 mcg (1,000 unit) Tablet 25 mcg PO DAILY polyethylene glycol 3350 [Miralax] 17 gram Powder In Packet 17 g PO DAILY diclofenac sodium 1 % Gel 2 g TOPICAL QID Rx Instructions: apply to single elbow, wrist or hand; for hand includes palm/fingers/back of hand acetaminophen 325 mg Tablet 650 mg PO Q6H PRN (Reason: Mild Pain (1-3) Or Fever) Qty: 30 0RF hydroxyzine HCl 25 mg Tablet 25 mg PO BID PRN (Reason: Anxiety) Qty: 30 0RF Date of admission: 03/09/24 10:13 Primary Care Provider: PHYSICIAN NOT ON STAFF,NONSTAFF Admitting Provider: Estefany Oneil Attending physician on admission: Sarah Barton Condition: Terminal Quality VTE Prophylaxis VTE prophylaxis: mechanical ordered and pharmacologic ordered Hospitalist MIPS Heart Failure (Exclusion) Patient has history of Heart Transplant or Left Ventricular Assistive Device?: No IF YES, STOP HERE Heart Failure (Qualifier) Patient has current or prior documentation of LVEF less than or equal to 40%, or mod/servere depressed LVSF?: No IF NO, STOP HERE
[2024-03-12 16:57] LABS: SARS-CoV-2 RNA PCR Negative (Negative)
== END 2024-03-12 17:20 | disposition home or self-care (01) | DRG 177 ==
LOC: ANHED 20:16 → ANH3MEDSUR 03-09 02:01
PROVIDERS: Student in an Organized Health Care Education/Training Program; Admitting Provider General Practice; Emergency Provider Student in an Organized Health Care Education/Training Program; Visit Provider Nurse Practitioner Family
DX: J69.0 Pneumonitis due to inhalation of food and vomit (principal); E43 Unspecified severe protein-calorie malnutrition; N17.9 Acute kidney failure, unspecified; C22.0 Liver cell carcinoma; Z68.1 Body mass index [BMI] 19.9 or less, adult; I69.354 Hemiplegia and hemiparesis following cerebral infarction affecting left non-dominant side; E87.5 Hyperkalemia; E78.5 Hyperlipidemia, unspecified; I25.10 Atherosclerotic heart disease of native coronary artery without angina pectoris; I10 Essential (primary) hypertension; K59.00 Constipation, unspecified; K21.9 Gastro-esophageal reflux disease without esophagitis; N40.0 Benign prostatic hyperplasia without lower urinary tract symptoms; Z95.1 Presence of aortocoronary bypass graft; Z66 Do not resuscitate; Z79.82 Long term (current) use of aspirin; Z87.891 Personal history of nicotine dependence; Z11.52 Encounter for screening for COVID-19; Z20.822 Contact with and (suspected) exposure to COVID-19
CPT/HCPCS: 36415; 70490; 71045; 71250; 80048; 80053; 81001; 83735; 84100; 84145; 85025; 86140; 87635; 87637; 87651; 92526; 92610; 96361; 96365; 96372; 96375; 99285; A9270; G0378; J0295; J1644; J2270; J2405; J2470; J7042; J7120